=== PATIENT | male | born 1945 | race Caucasian/White ===

== ENCOUNTER 2018-04-22 22:46 | Inpatient (IN) | payer MEDICARE ==
[~2018-04-22] VITALS: Ht 182.9 cm; Wt 150.1 kg
[~2018-04-22 22:46] MED LIST: ALBU90OI INH; Amlodipine Besyl5 MG PO; BP MEDS; DOXA4 PO; DOXY100 PO; FENO48 PO; FURO40 PO; GLIP5 PO; LISI20 PO; LOVA40 PO; METF500; METF500C PO; MYRBETRIQ25 MG PO; Metformin HCl500 MG PO; NAPR500 PO; Norco 10-325 T1 EACH PO; POTASSIUM PO; PRAV20 PO; PROACE100 PO; Rapaflo8 MG PO; SILD25T PO; TADA10TA PO; TAMS.4ER PO; [UNRECOGNIZED DRUG - REMARK]; [UNRECOGNIZED DRUG - REMARK]
[2018-04-22 23:22] LABS: BASOPHILS ABSOLUTE AUTO 0.04 K/mm3 (0.00-0.23); BASOPHILS PERCENT AUTO 1 % (0-2); EOSINOPHILS ABSOLUTE AUTO 0.18 K/mm3 (0.00-0.68); EOSINOPHILS PERCENT AUTO 3 % (0-6); Hematocrit 38.4 % (37.0-53.0); Hemoglobin 12.7 g/dL (13.5-17.5); IMMATURE GRAN ABSOLUTE AUTO 0.02 K/mm3 (0.00-0.10); IMMATURE GRAN PERCENT AUTO 0 % (0-1); LYMPHOCYTES ABSOLUTE AUTO 1.36 K/mm3 (0.84-5.20); LYMPHOCYTES PERCENT AUTO 20 % (21-46); MONOCYTES ABSOLUTE AUTO 0.47 K/mm3 (0.16-1.47); MONOCYTES PERCENT AUTO 7 % (4-13); Mean Corpuscular HGB 28.4 pg (26.0-34.0); Mean Corpuscular HGB Conc 33.1 g/dL (31.5-36.5); Mean Corpuscular Volume 86 fL (80-100); Mean Platelet Volume 10.6 fL (9.1-12.4); NEUTROPHILS ABSOLUTE AUTO 4.79 K/mm3 (1.96-9.15); NEUTROPHILS PERCENT AUTO 70 % (41-73); Platelet Count 138 K/mm3 (150-400); RDW Standard Deviation 40.6 fL (35.1-46.3); Red Blood Cell Count 4.47 M/mm3 (4.30-5.90); White Blood Cell Count 6.86 K/mm3 (4.00-11.30)
[2018-04-22 23:35] LABS: International Normalized Ratio 1.05; Prothrombin Time Results 10.8 Sec (9.7-11.5)
[2018-04-22 23:44] LABS: Alanine Aminotransfer (ALT/SGP 37 U/L (12-78); Albumin, Blood 3.9 g/dL (3.4-5.0); Albumin/Globulin Ratio 1.3 (0.8-1.8); Alk Phos 80 U/L (50-136); Anion Gap 7 mmol/L (6-16); Aspartate Aminotrans (AST/SGOT 28 U/L (12-37); Bilirubin, Total 0.6 mg/dL (0.1-1.0); Blood Urea Nitrogen 17 mg/dL (8-24); Bun/Creatinine Ratio 14.2 (12.0-20.0); CO2, Blood 29 mmol/L (21-32); Calcium, Blood 8.7 mg/dL (8.5-10.1); Chloride, Blood 107 mmol/L (98-108); Globulin, Blood 3.1 g/dL (2.2-4.0); Glomerular Filtration Rate >60 (60-); Glucose, Blood 135 mg/dL (70-99); Potassium, Blood 3.7 mmol/L (3.5-5.5); Sodium, Blood 143 mmol/L (136-145); Troponin I 0.028 ng/mL (0.000-0.040)
[2018-04-23 00:43] LABS: Source, Urine Clean Catch
[2018-04-23 01:05] LABS: Bilirubin, Urine Neg (Neg); Blood, Urine 1+ (Neg); Glucose Qualitative, Urine Neg (Neg); Ketones, Urine Neg (Neg); Leukocyte Esterase, Urine Neg (Neg); Nitrite, Urine Neg (Neg); Protein, Urine 3+ (Neg); Specific Gravity, Urine 1.025 (1.003-1.022); Urobilinogen, Urine NORM (Normal)
[2018-04-23 01:13] LABS: Appearance, Urine Clear (Clear); Color, Urine Yellow (P-Yellow)
[2018-04-23 01:16] LABS: Bacteria Not Seen /hpf; Red Blood Cells, Urine 0-2 /hpf (0-2); Squamous Epithelial Cells Not Seen /hpf (Few); White Blood Cells, Urine Not Seen /hpf (0-5)
[2018-04-23 01:17] LABS: PCO2 Arterial 49.5 mmHg (35-45); PO2 Arterial 60.8 mmHg (80-100); pH Blood Arterial 7.39 (7.35-7.45)
[2018-04-23] MEDS ORDERED: METO25ER PO (04:44)
[2018-04-23] MEDS ORDERED: HYDR1TAB94 PO (04:51)
[2018-04-23] MEDS ORDERED: MONT10T PO (04:59)
[2018-04-23] MEDS ORDERED: ALBU90OI INH (05:06)
[2018-04-23 07:18] LABS: BASOPHILS ABSOLUTE AUTO 0.03 K/mm3 (0.00-0.23); BASOPHILS PERCENT AUTO 0 % (0-2); EOSINOPHILS ABSOLUTE AUTO 0.04 K/mm3 (0.00-0.68); EOSINOPHILS PERCENT AUTO 1 % (0-6); Hematocrit 38.7 % (37.0-53.0); Hemoglobin 12.8 g/dL (13.5-17.5); IMMATURE GRAN ABSOLUTE AUTO 0.03 K/mm3 (0.00-0.10); IMMATURE GRAN PERCENT AUTO 0 % (0-1); LYMPHOCYTES ABSOLUTE AUTO 0.73 K/mm3 (0.84-5.20); LYMPHOCYTES PERCENT AUTO 9 % (21-46); MONOCYTES ABSOLUTE AUTO 0.11 K/mm3 (0.16-1.47); MONOCYTES PERCENT AUTO 1 % (4-13); Mean Corpuscular HGB 28.7 pg (26.0-34.0); Mean Corpuscular HGB Conc 33.1 g/dL (31.5-36.5); Mean Corpuscular Volume 87 fL (80-100); Mean Platelet Volume 10.6 fL (9.1-12.4); NEUTROPHILS ABSOLUTE AUTO 6.86 K/mm3 (1.96-9.15); NEUTROPHILS PERCENT AUTO 88 % (41-73); Platelet Count 127 K/mm3 (150-400); RDW Coefficient Variation 13.1 % (11.7-14.2); Red Blood Cell Count 4.46 M/mm3 (4.30-5.90)
[2018-04-23 07:35] LABS: Alanine Aminotransfer (ALT/SGP 41 U/L (12-78); Albumin, Blood 3.8 g/dL (3.4-5.0); Albumin/Globulin Ratio 1.2 (0.8-1.8); Alk Phos 83 U/L (50-136); Anion Gap 7 mmol/L (6-16); Aspartate Aminotrans (AST/SGOT 27 U/L (12-37); Bilirubin, Total 0.6 mg/dL (0.1-1.0); Blood Urea Nitrogen 19 mg/dL (8-24); Bun/Creatinine Ratio 17.4 (12.0-20.0); CO2, Blood 26 mmol/L (21-32); Calcium, Blood 8.4 mg/dL (8.5-10.1); Chloride, Blood 108 mmol/L (98-108); Creatinine, Blood 1.09 mg/dL (0.60-1.20); Globulin, Blood 3.1 g/dL (2.2-4.0); Glomerular Filtration Rate >60 (60-); Glucose, Blood 151 mg/dL (70-99); Potassium, Blood 4.2 mmol/L (3.5-5.5); Sodium, Blood 141 mmol/L (136-145); Total Protein, Blood 6.9 g/dL (6.4-8.2)
[2018-04-26 09:25] LABS: BASOPHILS ABSOLUTE AUTO 0.03 K/mm3 (0.00-0.23); BASOPHILS PERCENT AUTO 0 % (0-2); EOSINOPHILS ABSOLUTE AUTO 0.12 K/mm3 (0.00-0.68); EOSINOPHILS PERCENT AUTO 2 % (0-6); Hematocrit 41.4 % (37.0-53.0); Hemoglobin 13.7 g/dL (13.5-17.5); IMMATURE GRAN ABSOLUTE AUTO 0.02 K/mm3 (0.00-0.10); IMMATURE GRAN PERCENT AUTO 0 % (0-1); LYMPHOCYTES ABSOLUTE AUTO 1.56 K/mm3 (0.84-5.20); LYMPHOCYTES PERCENT AUTO 22 % (21-46); MONOCYTES ABSOLUTE AUTO 0.61 K/mm3 (0.16-1.47); MONOCYTES PERCENT AUTO 8 % (4-13); Mean Corpuscular HGB 28.8 pg (26.0-34.0); Mean Corpuscular HGB Conc 33.1 g/dL (31.5-36.5); Mean Corpuscular Volume 87 fL (80-100); Mean Platelet Volume 10.3 fL (9.1-12.4); NEUTROPHILS ABSOLUTE AUTO 4.91 K/mm3 (1.96-9.15); NEUTROPHILS PERCENT AUTO 68 % (41-73); Platelet Count 149 K/mm3 (150-400); RDW Coefficient Variation 12.9 % (11.7-14.2); RDW Standard Deviation 41.4 fL (35.1-46.3); Red Blood Cell Count 4.76 M/mm3 (4.30-5.90); White Blood Cell Count 7.25 K/mm3 (4.00-11.30)
[2018-04-26 09:42] LABS: Albumin/Globulin Ratio 1.2 (0.8-1.8); Bilirubin, Total 0.8 mg/dL (0.1-1.0); Bun/Creatinine Ratio 28.2 (12.0-20.0); Calcium, Blood 9.1 mg/dL (8.5-10.1); Creatinine, Blood 1.42 mg/dL (0.60-1.20); Globulin, Blood 3.4 g/dL (2.2-4.0); Potassium, Blood 3.4 mmol/L (3.5-5.5); Total Protein, Blood 7.4 g/dL (6.4-8.2)
[2018-04-26] MEDS ORDERED: POTCHL20ER PO (12:12)
[2018-04-26] MEDS ORDERED: HYDCHL25 PO (12:16)
[2018-04-27 04:57] LABS: BASOPHILS ABSOLUTE AUTO 0.03 K/mm3 (0.00-0.23); BASOPHILS PERCENT AUTO 0 % (0-2); EOSINOPHILS ABSOLUTE AUTO 0.12 K/mm3 (0.00-0.68); EOSINOPHILS PERCENT AUTO 2 % (0-6); Hematocrit 40.1 % (37.0-53.0); Hemoglobin 12.9 g/dL (13.5-17.5); IMMATURE GRAN ABSOLUTE AUTO 0.02 K/mm3 (0.00-0.10); IMMATURE GRAN PERCENT AUTO 0 % (0-1); LYMPHOCYTES ABSOLUTE AUTO 1.37 K/mm3 (0.84-5.20); LYMPHOCYTES PERCENT AUTO 19 % (21-46); MONOCYTES ABSOLUTE AUTO 0.68 K/mm3 (0.16-1.47); MONOCYTES PERCENT AUTO 10 % (4-13); Mean Corpuscular HGB 28.2 pg (26.0-34.0); Mean Corpuscular HGB Conc 32.2 g/dL (31.5-36.5); Mean Corpuscular Volume 88 fL (80-100); Mean Platelet Volume 10.5 fL (9.1-12.4); NEUTROPHILS ABSOLUTE AUTO 4.96 K/mm3 (1.96-9.15); NEUTROPHILS PERCENT AUTO 69 % (41-73); Platelet Count 148 K/mm3 (150-400); RDW Standard Deviation 41.1 fL (35.1-46.3); Red Blood Cell Count 4.58 M/mm3 (4.30-5.90); White Blood Cell Count 7.18 K/mm3 (4.00-11.30)
[2018-04-27 05:19] LABS: Albumin, Blood 3.6 g/dL (3.4-5.0); Albumin/Globulin Ratio 1.2 (0.8-1.8); Bilirubin, Total 0.7 mg/dL (0.1-1.0); Bun/Creatinine Ratio 23.7 (12.0-20.0); Calcium, Blood 8.7 mg/dL (8.5-10.1); Creatinine, Blood 1.86 mg/dL (0.60-1.20); Globulin, Blood 3.1 g/dL (2.2-4.0); Potassium, Blood 3.7 mmol/L (3.5-5.5); Total Protein, Blood 6.7 g/dL (6.4-8.2)
[2018-04-27] MEDS ORDERED: METO10 PO (14:50)
== END 2018-04-27 15:18 | disposition home or self-care (01) | DRG 189 ==
LOC: ER 22:46 → PCU 04-23 04:13 → MEDS 04-24 14:50 → ENPENDDIS 04-26 11:58 → EDPENDDIS 04-26 11:58 → MEDS 04-27 15:18
PROVIDERS: Emergency Medicine; Internal Medicine
DX: J96.01 Acute respiratory failure with hypoxia (principal); I50.33 Acute on chronic diastolic (congestive) heart failure; I45.2 Bifascicular block; Z68.41 Body mass index [BMI] 40.0-44.9, adult; I16.0 Hypertensive urgency; E66.01 Morbid (severe) obesity due to excess calories; G47.33 Obstructive sleep apnea (adult) (pediatric); N40.0 Benign prostatic hyperplasia without lower urinary tract symptoms; E78.5 Hyperlipidemia, unspecified; I11.0 Hypertensive heart disease with heart failure; M19.90 Unspecified osteoarthritis, unspecified site; E87.6 Hypokalemia; E11.43 Type 2 diabetes mellitus with diabetic autonomic (poly)neuropathy; K31.84 Gastroparesis; Z88.8 Allergy status to other drugs, medicaments and biological substances; Z79.84 Long term (current) use of oral hypoglycemic drugs; Z79.899 Other long term (current) drug therapy; Z87.891 Personal history of nicotine dependence
CPT/HCPCS: 36415; 36416; 36600; 71046; 80053; 81001; 82803; 82947; 83880; 84484; 85025; 85610; 85730; 93005; 93010; 93306; 94640; 94660; 94762; 96374; 97161; 99285-25; G8978; G8979; G8980; J1650; J1940; J2405; J2930

== ENCOUNTER → 2018-10-11 | Outpatient (CLI) | payer MEDICARE ==
[~2018-10-11] MED LIST changes: +HYDCHL25 PO; +HYDR1TAB94 PO; +METO10 PO; +METO25ER PO; +MONT10T PO; +POTCHL20ER PO
[2018-10-11 16:50] LABS: BASOPHILS ABSOLUTE AUTO 0.03 K/mm3 (0.00-0.23); BASOPHILS PERCENT AUTO 1 % (0-2); EOSINOPHILS ABSOLUTE AUTO 0.28 K/mm3 (0.00-0.68); EOSINOPHILS PERCENT AUTO 5 % (0-6); Hematocrit 36.5 % (37.0-53.0); IMMATURE GRAN ABSOLUTE AUTO 0.02 K/mm3 (0.00-0.10); IMMATURE GRAN PERCENT AUTO 0 % (0-1); LYMPHOCYTES ABSOLUTE AUTO 0.97 K/mm3 (0.84-5.20); LYMPHOCYTES PERCENT AUTO 16 % (21-46); MONOCYTES ABSOLUTE AUTO 0.57 K/mm3 (0.16-1.47); MONOCYTES PERCENT AUTO 10 % (4-13); Mean Corpuscular HGB 27.9 pg (26.0-34.0); Mean Corpuscular HGB Conc 32.9 g/dL (31.5-36.5); Mean Corpuscular Volume 85 fL (80-100); NEUTROPHILS ABSOLUTE AUTO 4.07 K/mm3 (1.96-9.15); NEUTROPHILS PERCENT AUTO 69 % (41-73); RDW Coefficient Variation 14.2 % (11.7-14.2); RDW Standard Deviation 43.7 fL (35.1-46.3); White Blood Cell Count 5.94 K/mm3 (4.00-11.30)
[2018-10-11 17:00] LABS: Albumin, Blood 3.7 g/dL (3.4-5.0); Albumin/Globulin Ratio 0.9 (0.8-1.8); Bilirubin, Total 0.6 mg/dL (0.1-1.0); Bun/Creatinine Ratio 16.4 (12.0-20.0); Calcium, Blood 8.6 mg/dL (8.5-10.1); Creatinine, Blood 1.95 mg/dL (0.60-1.20); Globulin, Blood 4.1 g/dL (2.2-4.0); Potassium, Blood 3.7 mmol/L (3.5-5.5); Total Protein, Blood 7.8 g/dL (6.4-8.2)
[2018-10-11 18:03] LABS: Mean Platelet Volume 11.3 fL (9.1-12.4); Platelet Count 135 K/mm3 (150-400)
== END | disposition home or self-care (01) ==
LOC: LAB EV 16:43 → LAB SHORT 16:43
PROVIDERS: Physician Assistant
DX: R09.02 Hypoxemia (principal)
CPT/HCPCS: 80053; 83880; 85025

== ENCOUNTER 2018-10-12 17:36 | Inpatient (IN) | payer MEDICARE ==
[~2018-10-12] VITALS: Ht 182.9 cm; Wt 136.0 kg
[~2018-10-12 17:36] MED LIST changes: +ALBU2.5V5 INH; +Micro-K10 MEQ PO; -POTCHL20ER PO
[2018-10-12 22:28] LABS: PCO2 Arterial 44.7 mmHg (35-45); PO2 Arterial 64.9 mmHg (80-100)
[2018-10-12 22:51] LABS: BASOPHILS ABSOLUTE AUTO 0.01 K/mm3 (0.00-0.23); BASOPHILS PERCENT AUTO 0 % (0-2); EOSINOPHILS ABSOLUTE AUTO 0.01 K/mm3 (0.00-0.68); EOSINOPHILS PERCENT AUTO 0 % (0-6); Hematocrit 38.1 % (37.0-53.0); IMMATURE GRAN ABSOLUTE AUTO 0.01 K/mm3 (0.00-0.10); IMMATURE GRAN PERCENT AUTO 0 % (0-1); LYMPHOCYTES ABSOLUTE AUTO 0.41 K/mm3 (0.84-5.20); LYMPHOCYTES PERCENT AUTO 9 % (21-46); MONOCYTES PERCENT AUTO 2 % (4-13); Mean Corpuscular HGB 27.7 pg (26.0-34.0); Mean Corpuscular HGB Conc 31.5 g/dL (31.5-36.5); Mean Platelet Volume 10.7 fL (9.1-12.4); NEUTROPHILS ABSOLUTE AUTO 4.28 K/mm3 (1.96-9.15); NEUTROPHILS PERCENT AUTO 89 % (41-73); Platelet Count 153 K/mm3 (150-400); RDW Coefficient Variation 13.7 % (11.7-14.2); Red Blood Cell Count 4.33 M/mm3 (4.30-5.90); White Blood Cell Count 4.82 K/mm3 (4.00-11.30)
[2018-10-12 22:52] LABS: Mean Corpuscular Volume 88 fL (80-100)
[2018-10-12 23:10] LABS: Albumin, Blood 3.7 g/dL (3.4-5.0); Albumin/Globulin Ratio 0.9 (0.8-1.8); Bilirubin, Total 0.6 mg/dL (0.1-1.0); Bun/Creatinine Ratio 18.4 (12.0-20.0); Calcium, Blood 8.9 mg/dL (8.5-10.1); Creatinine, Blood 1.58 mg/dL (0.60-1.20); Globulin, Blood 4.2 g/dL (2.2-4.0); Magnesium, Blood 2.6 mg/dL (1.6-2.4); Potassium, Blood 3.8 mmol/L (3.5-5.5); Total Protein, Blood 7.9 g/dL (6.4-8.2); Troponin I 0.016 ng/mL (0.000-0.040)
[2018-10-12 23:35] LABS: Influenza A Negative (NEGATIVE); Influenza B Negative (NEGATIVE)
--- NOTE | 2018-10-13 05:06 | NUR ---
SHIFT SUMMARY PT ARRIVED TO FLOOR IN NO DISTRESS. PT HAD NO COMPLAINTS OR ISSUES. PT CURRENTLY SLEEPING AND BREATHING EASY. CALL LIGHT IN REACH.
--- NOTE | 2018-10-13 08:15 | NUR ---
NOTIFIED DR. BABCOCK PT'S BP THIS AM 170/79 AND DOES NOT HAVE ANY MEDICATIONS ORDERED TO MANAGE HIS BP. DR. BABCOCK SAID SHE WILL PUT IN ORDERS FOR PRN HYDRALAZINE.
--- NOTE | 2018-10-13 12:43 | NUR ---
PT'S MED REC INCOMPLETE. PT REPORTS HE USES [facility] IN [place] AND [facility] IN [place]. ATTEMPTED TO CALL [facility] IN [place]. STAFF REPORTS PHARMACY CLOSED SUNDAYS. WILL CALL [facility] IN [place] TO ATTEMPT TO GET PT'S MED LIST.
--- NOTE | 2018-10-13 12:49 | NUR ---
ATTEMPTED TO CALL [facility]. NO ANSWER. WILL TRY AGAIN LATER.
--- NOTE | 2018-10-13 15:28 | NUR ---
NOTIFIED DR. BABCOCK PT REPORTS HIS EYES ARE DRY AND BURNING AND THAT HE USUALLY USES VISINE AT HOME. SAID TO ORDER VISINE. NO OTHER NEW ORDERS AT THIS TIME.
--- NOTE | 2018-10-13 18:24 | NUR ---
SHIFT SUMMARY- PT DENIES PAIN. DENIES N/V. DYSPNEA UPON EXERTION. 93% ON 4L O2 NC. BP ELEVATED THIS AM. NOTIFIED. MEDS GIVEN PER EMAR. BP 142/54 THIS PM. BLOOD SUGARS BETWEEN 233-289 THIS SHIFT. MEDS GIVEN PER EMAR. INDEPENDENT IN THE ROOM. NO OTHER SIGNIFICANT CHANGES THIS SHIFT.
[2018-10-14 05:00] LABS: BASOPHILS ABSOLUTE AUTO 0.01 K/mm3 (0.00-0.23); BASOPHILS PERCENT AUTO 0 % (0-2); EOSINOPHILS PERCENT AUTO 0 % (0-6); Hematocrit 36.1 % (37.0-53.0); Hemoglobin 11.5 g/dL (13.5-17.5); IMMATURE GRAN ABSOLUTE AUTO 0.06 K/mm3 (0.00-0.10); IMMATURE GRAN PERCENT AUTO 1 % (0-1); LYMPHOCYTES ABSOLUTE AUTO 0.54 K/mm3 (0.84-5.20); LYMPHOCYTES PERCENT AUTO 5 % (21-46); MONOCYTES ABSOLUTE AUTO 0.35 K/mm3 (0.16-1.47); MONOCYTES PERCENT AUTO 3 % (4-13); Mean Corpuscular HGB 27.3 pg (26.0-34.0); Mean Corpuscular HGB Conc 31.9 g/dL (31.5-36.5); Mean Corpuscular Volume 86 fL (80-100); Mean Platelet Volume 11.4 fL (9.1-12.4); NEUTROPHILS ABSOLUTE AUTO 9.39 K/mm3 (1.96-9.15); NEUTROPHILS PERCENT AUTO 91 % (41-73); Platelet Count 152 K/mm3 (150-400); RDW Standard Deviation 43.3 fL (35.1-46.3); Red Blood Cell Count 4.22 M/mm3 (4.30-5.90); White Blood Cell Count 10.35 K/mm3 (4.00-11.30)
--- NOTE | 2018-10-14 05:07 | NUR ---
72 year old Male with jose and iddm and cap continues to need oxygen 4 l nc or cpap to keep sats greater than 90%. he is obese and has 2plus to 3 plus edema le. on antibiotics and steroids and blood suger requires 7 units regular insulin at hs. very talkative and able to get up and ambulate to bathroom unassisted.
[2018-10-14 05:24] LABS: Magnesium, Blood 3.1 mg/dL (1.6-2.4)
[2018-10-14 05:26] LABS: Albumin, Blood 3.6 g/dL (3.4-5.0); Albumin/Globulin Ratio 0.9 (0.8-1.8); Bilirubin, Total 0.4 mg/dL (0.1-1.0); Bun/Creatinine Ratio 24.2 (12.0-20.0); Calcium, Blood 8.9 mg/dL (8.5-10.1); Creatinine, Blood 1.49 mg/dL (0.60-1.20); Globulin, Blood 3.9 g/dL (2.2-4.0); Potassium, Blood 3.5 mmol/L (3.5-5.5); Total Protein, Blood 7.5 g/dL (6.4-8.2)
--- NOTE | 2018-10-14 19:57 | NUR ---
SHIFT SUMMARY PT A&O, CALM AND COOPERATIVE WITH CARE. PT RESTING IN BED DURING SHIFT. UP IND TO BATHROOM. PT REPORTS GENERALIZED PAIN AND MAS, STATES ITS RELATED TO COUGHING, MEDICATED X2 WITH SCHEDULED TYLENOL WITH POSITIVE RESULTS. PT SOB WITH EXERTION, PT HAS INCREASE NEED FOR O2, FROM 4L TO 6L >88% ON 6L, DR BABCOCK NOTIFIED, CHEST XRAY COMPLETED. PT RECEIVED PO LASIX THIS AM AND IV THIS AFTERNOON. PT ENCOURAGED TO USE URINAL FOR I&O's. PT RECEIVING IV STEROIDS THIS AM, TRANSITIONING TO PO TOMORROW. PT HYPERTENSIVE,TRENDING DOWN. INCREASED NEED FOR O2. OTHER VSS. NO OTHER ACUTE CHANGES NOTED DURING SHIFT REPORT GIVEN TO ONCOMING RN.
--- NOTE | 2018-10-15 05:07 | NUR ---
VSS. AFEBRILE, A/O, HARSH COUGH AT TIMES, PT USES CPAP OVERNOC, C/O OF SOB/READ AT TIMES, PT IS COOPERATIVE AND TALKATIVE. PUSLE OXIMETER MONITORING OVERNOC. PT SLEPT WELL MOST OF THE NOC. WILL REPORT TO ON-COMING SHIFT.
[2018-10-15 05:15] LABS: BASOPHILS ABSOLUTE AUTO 0.01 K/mm3 (0.00-0.23); BASOPHILS PERCENT AUTO 0 % (0-2); EOSINOPHILS PERCENT AUTO 0 % (0-6); Hematocrit 36.6 % (37.0-53.0); Hemoglobin 11.6 g/dL (13.5-17.5); IMMATURE GRAN ABSOLUTE AUTO 0.08 K/mm3 (0.00-0.10); IMMATURE GRAN PERCENT AUTO 1 % (0-1); LYMPHOCYTES ABSOLUTE AUTO 0.64 K/mm3 (0.84-5.20); LYMPHOCYTES PERCENT AUTO 6 % (21-46); MONOCYTES ABSOLUTE AUTO 0.65 K/mm3 (0.16-1.47); MONOCYTES PERCENT AUTO 6 % (4-13); Mean Corpuscular HGB Conc 31.7 g/dL (31.5-36.5); Mean Corpuscular Volume 85 fL (80-100); Mean Platelet Volume 11.5 fL (9.1-12.4); NEUTROPHILS ABSOLUTE AUTO 9.79 K/mm3 (1.96-9.15); NEUTROPHILS PERCENT AUTO 88 % (41-73); Platelet Count 165 K/mm3 (150-400); RDW Coefficient Variation 13.9 % (11.7-14.2); RDW Standard Deviation 43.4 fL (35.1-46.3); Red Blood Cell Count 4.29 M/mm3 (4.30-5.90); White Blood Cell Count 11.17 K/mm3 (4.00-11.30)
[2018-10-15 05:33] LABS: Albumin, Blood 3.6 g/dL (3.4-5.0); Albumin/Globulin Ratio 0.9 (0.8-1.8); Bilirubin, Total 0.3 mg/dL (0.1-1.0); Bun/Creatinine Ratio 30.7 (12.0-20.0); Creatinine, Blood 1.4 mg/dL (0.60-1.20); Globulin, Blood 3.8 g/dL (2.2-4.0); Potassium, Blood 3.4 mmol/L (3.5-5.5); Total Protein, Blood 7.4 g/dL (6.4-8.2)
--- NOTE | 2018-10-15 18:18 | NUR ---
SHIFT SUMMARY PT HAS HAD AN INCREASED NEED FOR OXYGEN AND WILL TRANSITION FROM CPAP TO BIPAP THIS EVENING, DR BABCOCK NOTIFIED, NO NEW ORDERS. PT ON 7L O2 VIA OXYMIZER OR BIPAP, PT RECEIVING BREATHING TREATMENTS PER RT. PT A&OX4. CALM AND COOPERATIVE [facility] CARE. PT RESTING IN BED DURING SHIFT, ON SIDE OF BED FOR MEALS. PT REPORTS GENERALIZED PAIN, MEDICATED X1 WITH TYLENOL. PT DENIES NAUSEA DURIGN SHIFT. PT RECEIVING IV LASIX AND HAS TRANSITIONED TO PO STEROIDS. OTHER VSS. NO OTHER ACUTE CHANGES NOTED DURING SHIFT. WILL CONTINUE TO MONITOR UNTIL REPORT GIVEN TO ONCOMING RN.
--- NOTE | 2018-10-16 05:23 | NUR ---
VSS, AFEBRILE, PT REMAINS OXYGEN STARVED AND SATS FREQUENTLY FALL OUT OF THE 90% RATE. RT HAS BEEN CALLED A FEW TIMES TO ASSIST WITH REGAINING THE SATURATION THAT HE HAS LOST. PT IS NOT ENTHUSIASTIC ABOUT HIS BIPAP, BUT DID FINALLY DID DECIDE TO USE IT OVERNOC. 7L OF O2. PT REMAINS HEAVILY DEPENDENT ON O2.WILL REPORT TO ONCOMING SHIFT.
[2018-10-16 08:36] LABS: BASOPHILS ABSOLUTE AUTO 0.01 K/mm3 (0.00-0.23); BASOPHILS PERCENT AUTO 0 % (0-2); EOSINOPHILS ABSOLUTE AUTO 0.01 K/mm3 (0.00-0.68); EOSINOPHILS PERCENT AUTO 0 % (0-6); Hematocrit 39.3 % (37.0-53.0); Hemoglobin 12.7 g/dL (13.5-17.5); IMMATURE GRAN ABSOLUTE AUTO 0.09 K/mm3 (0.00-0.10); IMMATURE GRAN PERCENT AUTO 1 % (0-1); LYMPHOCYTES ABSOLUTE AUTO 1.11 K/mm3 (0.84-5.20); LYMPHOCYTES PERCENT AUTO 12 % (21-46); MONOCYTES ABSOLUTE AUTO 0.75 K/mm3 (0.16-1.47); MONOCYTES PERCENT AUTO 8 % (4-13); Mean Corpuscular HGB 27.6 pg (26.0-34.0); Mean Corpuscular HGB Conc 32.3 g/dL (31.5-36.5); Mean Corpuscular Volume 85 fL (80-100); Mean Platelet Volume 10.9 fL (9.1-12.4); NEUTROPHILS ABSOLUTE AUTO 7.03 K/mm3 (1.96-9.15); NEUTROPHILS PERCENT AUTO 78 % (41-73); Platelet Count 171 K/mm3 (150-400); RDW Coefficient Variation 13.7 % (11.7-14.2); RDW Standard Deviation 42.6 fL (35.1-46.3)
[2018-10-16 09:02] LABS: Albumin, Blood 3.7 g/dL (3.4-5.0); Albumin/Globulin Ratio 0.9 (0.8-1.8); Bilirubin, Total 0.4 mg/dL (0.1-1.0); Bun/Creatinine Ratio 28.1 (12.0-20.0); Creatinine, Blood 1.28 mg/dL (0.60-1.20); Magnesium, Blood 2.9 mg/dL (1.6-2.4); Potassium, Blood 3.5 mmol/L (3.5-5.5); Total Protein, Blood 7.7 g/dL (6.4-8.2)
--- NOTE | 2018-10-16 17:25 | NUR ---
Mr. Sanchez is a delightful man who enjoys making people smile. He says he is ot concernedabout his health, just irritated. He is not clear as to what is wrong with him, but says he would rather be home. He feels he has a strong supportive network of family and friends. He tells me he is Catholic but not active. He declined needs or concerns. He did not want prayer. I will remain available.
--- NOTE | 2018-10-16 18:19 | NUR ---
PT. ON PHONE ONCE AGAIN, PT. IS SNOQUALMIE AND CAN BE HEARD UP AND DOWN THE WEISS. PT. LUNG SOUNDS TIGHT WITH INS/EXP WHEEZES T/O. PT. OXYGEN LEVELS IN THE LOW 90'S T/O THE DAY. HAS NOT APPEARED TO BE IN ANY DISTRESS TODAY.
[2018-10-17 05:17] LABS: BASOPHILS ABSOLUTE AUTO 0.01 K/mm3 (0.00-0.23); BASOPHILS PERCENT AUTO 0 % (0-2); EOSINOPHILS ABSOLUTE AUTO 0.01 K/mm3 (0.00-0.68); EOSINOPHILS PERCENT AUTO 0 % (0-6); Hematocrit 38.6 % (37.0-53.0); Hemoglobin 12.2 g/dL (13.5-17.5); IMMATURE GRAN ABSOLUTE AUTO 0.11 K/mm3 (0.00-0.10); IMMATURE GRAN PERCENT AUTO 1 % (0-1); LYMPHOCYTES PERCENT AUTO 10 % (21-46); MONOCYTES ABSOLUTE AUTO 0.71 K/mm3 (0.16-1.47); MONOCYTES PERCENT AUTO 8 % (4-13); Mean Corpuscular HGB 27.3 pg (26.0-34.0); Mean Corpuscular HGB Conc 31.6 g/dL (31.5-36.5); Mean Corpuscular Volume 86 fL (80-100); Mean Platelet Volume 10.9 fL (9.1-12.4); NEUTROPHILS ABSOLUTE AUTO 7.17 K/mm3 (1.96-9.15); NEUTROPHILS PERCENT AUTO 81 % (41-73); Platelet Count 154 K/mm3 (150-400); RDW Coefficient Variation 13.2 % (11.7-14.2); RDW Standard Deviation 41.9 fL (35.1-46.3); Red Blood Cell Count 4.47 M/mm3 (4.30-5.90); White Blood Cell Count 8.91 K/mm3 (4.00-11.30)
--- NOTE | 2018-10-17 05:30 | NUR ---
VSS, AFEBRILE, A/O, READ, BIPAP AT NOC, O2 SATS APPEAR TO BE IMPROVING, PT APPEARS TO BE IN GOOD SPIRITS, MORE TALKATIVE AND OPPTIMISTIC ABOUT BEING DISCHARGED HOME IN A FEW DAYS. WILL REPORT TO ON-COMING SHIFT.
[2018-10-17 05:42] LABS: Calcium, Blood 9.2 mg/dL (8.5-10.1); Creatinine, Blood 1.31 mg/dL (0.60-1.20); Potassium, Blood 3.8 mmol/L (3.5-5.5)
--- NOTE | 2018-10-17 17:53 | NUR ---
PT AOX4 AND COOPERATIVE OF CARE. PT DOING WELL AND IS INDEPENDENT TO RESTROOM WITH LONG O2 LINE. PT STATES HE IS NOT COUGHING MUCH TODAY AND FEELS MUCH BETTER. PT HAD A SHOWER AND WAS ABLE TO DO THIS HIMSELF. NO DISTRESS NOTED GOOD URINE OUTPUT. WILL CONTINUE TO MONITOR.
--- NOTE | 2018-10-18 04:30 | NUR ---
10/18/18 0430 SLEEPING WELL. VITALS TAKEN EARLIER WERE STABLE. O2 REMAINS AT 7 LPM VIA OXIMIZER. NO COMPLAINTS DURING VITALS OR NOW.
[2018-10-18 05:37] LABS: BASOPHILS ABSOLUTE AUTO 0.02 K/mm3 (0.00-0.23); BASOPHILS PERCENT AUTO 0 % (0-2); EOSINOPHILS ABSOLUTE AUTO 0.08 K/mm3 (0.00-0.68); EOSINOPHILS PERCENT AUTO 1 % (0-6); Hemoglobin 12.2 g/dL (13.5-17.5); IMMATURE GRAN PERCENT AUTO 2 % (0-1); LYMPHOCYTES ABSOLUTE AUTO 1.17 K/mm3 (0.84-5.20); LYMPHOCYTES PERCENT AUTO 11 % (21-46); MONOCYTES ABSOLUTE AUTO 0.77 K/mm3 (0.16-1.47); MONOCYTES PERCENT AUTO 7 % (4-13); Mean Corpuscular HGB 27.7 pg (26.0-34.0); Mean Corpuscular HGB Conc 32.1 g/dL (31.5-36.5); Mean Corpuscular Volume 86 fL (80-100); Mean Platelet Volume 10.9 fL (9.1-12.4); NEUTROPHILS ABSOLUTE AUTO 8.36 K/mm3 (1.96-9.15); NEUTROPHILS PERCENT AUTO 79 % (41-73); Platelet Count 151 K/mm3 (150-400); RDW Coefficient Variation 13.4 % (11.7-14.2); RDW Standard Deviation 42.4 fL (35.1-46.3); Red Blood Cell Count 4.41 M/mm3 (4.30-5.90)
[2018-10-18 05:58] LABS: Alanine Aminotransfer (ALT/SGP 33 U/L (12-78); Albumin, Blood 3.4 g/dL (3.4-5.0); Albumin/Globulin Ratio 0.9 (0.8-1.8); Alk Phos 69 U/L (50-136); Anion Gap 7 mmol/L (6-16); Aspartate Aminotrans (AST/SGOT 28 U/L (12-37); Bilirubin, Total 0.6 mg/dL (0.1-1.0); Blood Urea Nitrogen 39 mg/dL (8-24); CO2, Blood 31 mmol/L (21-32); Calcium, Blood 9.2 mg/dL (8.5-10.1); Chloride, Blood 98 mmol/L (98-108); Creatinine, Blood 1.22 mg/dL (0.60-1.20); Globulin, Blood 3.7 g/dL (2.2-4.0); Glomerular Filtration Rate >60 (60-); Glucose, Blood 142 mg/dL (70-99); Potassium, Blood 3.8 mmol/L (3.5-5.5); Sodium, Blood 136 mmol/L (136-145); Total Protein, Blood 7.1 g/dL (6.4-8.2)
--- NOTE | 2018-10-18 17:49 | NUR ---
SHIFT SUMMARY PATIENT PLEASANT. INDEPENDENT IN THE ROOM. NO ACUTE CONCERNS AT THIS TIME. HE TOOK A SHOWER TODAY. PATIENT DOING BETTER.
--- NOTE | 2018-10-18 20:53 | NUR ---
NO ACUTE CHANGES NOTED, MILD PAIN NOTED, WILL MEDICATE WITH PRN MEDICATIONS. NO OTHER ISSUES NOTED AT THIS TIME. WILL CONTINUE TO MONITOR FOR CHANGES.
--- NOTE | 2018-10-18 22:18 | NUR ---
2030 REPORT RECEIVED. PT WEARING O2 VIA OXIMZER AND DENIES DYSPNEA. PTS BLOOD GLUCOSE WAS 285, HUMALOG 7 UNITS GIVEN (DOUBLE CHECKED BY FAZAL SUAREZ) LEFT DELTOID.
[2018-10-19 05:02] LABS: Bun/Creatinine Ratio 34.1 (12.0-20.0); Calcium, Blood 9.2 mg/dL (8.5-10.1); Creatinine, Blood 1.29 mg/dL (0.60-1.20); Potassium, Blood 4.1 mmol/L (3.5-5.5)
--- NOTE | 2018-10-19 05:05 | NUR ---
72 Y/O OBESE MALE SLEPT QUIETLY AL EVENING WHILE WEARING C-PAP. PTS DENIES NAUSEA OR PAIN, SLIGHT DYSPNEA WHICH IS RESOLVING PER PATIENT. PTS BED IN LOW POSITION WITH CALL LIGHT AT SIDE.
--- NOTE | 2018-10-19 18:43 | NUR ---
SHIFT SUMMARY NO ACUTE CHANGSE WITH THE PATIENT. WILL ASSESS FOR CONCERNS.
--- NOTE | 2018-10-20 04:02 | NUR ---
SHIFT SUMMARY NO CHANGES THIS SHIFT. PT HAS RESTED T/O THE SHIFT. 3L O2 IN PLACE SATS ABOVE 90%. CPAP AT NIGHT WITH 3.5 L BLEED IN. PT INDEPENDENT IN THE ROOM. MEDICATED X1 FOR CHRONIC PAIN. VITALS STABLE. ASSESSMENT UNCHANGED. WILL CONTINUE TO MONITOR AND REPORT TO ONCOMING RN.
[2018-10-20 05:07] LABS: BASOPHILS ABSOLUTE AUTO 0.03 K/mm3 (0.00-0.23); BASOPHILS PERCENT AUTO 0 % (0-2); EOSINOPHILS ABSOLUTE AUTO 0.07 K/mm3 (0.00-0.68); EOSINOPHILS PERCENT AUTO 1 % (0-6); Hematocrit 38.7 % (37.0-53.0); Hemoglobin 12.3 g/dL (13.5-17.5); IMMATURE GRAN ABSOLUTE AUTO 0.29 K/mm3 (0.00-0.10); IMMATURE GRAN PERCENT AUTO 2 % (0-1); LYMPHOCYTES ABSOLUTE AUTO 1.15 K/mm3 (0.84-5.20); LYMPHOCYTES PERCENT AUTO 9 % (21-46); MONOCYTES PERCENT AUTO 8 % (4-13); Mean Corpuscular HGB 27.7 pg (26.0-34.0); Mean Corpuscular HGB Conc 31.8 g/dL (31.5-36.5); Mean Corpuscular Volume 87 fL (80-100); Mean Platelet Volume 10.7 fL (9.1-12.4); NEUTROPHILS ABSOLUTE AUTO 10.76 K/mm3 (1.96-9.15); NEUTROPHILS PERCENT AUTO 81 % (41-73); Platelet Count 161 K/mm3 (150-400); RDW Coefficient Variation 13.5 % (11.7-14.2); RDW Standard Deviation 43.2 fL (35.1-46.3); Red Blood Cell Count 4.44 M/mm3 (4.30-5.90)
[2018-10-20 05:46] LABS: Albumin, Blood 3.4 g/dL (3.4-5.0); Albumin/Globulin Ratio 0.9 (0.8-1.8); Bilirubin, Total 0.5 mg/dL (0.1-1.0); Bun/Creatinine Ratio 36.8 (12.0-20.0); Calcium, Blood 9.2 mg/dL (8.5-10.1); Creatinine, Blood 1.44 mg/dL (0.60-1.20); Globulin, Blood 3.9 g/dL (2.2-4.0); Magnesium, Blood 2.8 mg/dL (1.6-2.4); Potassium, Blood 3.8 mmol/L (3.5-5.5); Total Protein, Blood 7.3 g/dL (6.4-8.2)
--- NOTE | 2018-10-20 17:58 | NUR ---
SHIFT SUMMARY PATIENT IS STILL PLEASANT. NO ACUTE CONCERNS. PATIENT IS POTENTIAL FOR DISCHARGE TOMORROW.
--- NOTE | 2018-10-21 04:21 | NUR ---
SHIFT SUMMARY NO ACUTE CHANGES PT HAS RESTED MOST OF THE NIGHT. CPAP IN PLACE. PT HAS BEEN INDEPENDENT IN THE ROOM, USES URINAL AT BEDSIDE. PT VOIDING WITHOUT DIFFICULTY SINCE LASIKS. LEGS REMAIN EDEMATOUS. PRODUCTIVE COUGH. 3L O2, IN PLACE. SOB WITH MOST ACTIVITY. VITALS HAVE BEEN STABLE. PLAN IS FOR DC HOME TODAY. WILL CONTINUE TO MONITOR AND REPORT TO ONCOMING RN.
[2018-10-21 05:18] LABS: BASOPHILS ABSOLUTE AUTO 0.01 K/mm3 (0.00-0.23); BASOPHILS PERCENT AUTO 0 % (0-2); EOSINOPHILS PERCENT AUTO 1 % (0-6); Hematocrit 38.8 % (37.0-53.0); Hemoglobin 12.2 g/dL (13.5-17.5); IMMATURE GRAN ABSOLUTE AUTO 0.29 K/mm3 (0.00-0.10); IMMATURE GRAN PERCENT AUTO 3 % (0-1); LYMPHOCYTES ABSOLUTE AUTO 1.05 K/mm3 (0.84-5.20); LYMPHOCYTES PERCENT AUTO 10 % (21-46); MONOCYTES ABSOLUTE AUTO 0.89 K/mm3 (0.16-1.47); MONOCYTES PERCENT AUTO 8 % (4-13); Mean Corpuscular HGB 27.6 pg (26.0-34.0); Mean Corpuscular HGB Conc 31.4 g/dL (31.5-36.5); Mean Corpuscular Volume 88 fL (80-100); Mean Platelet Volume 11.2 fL (9.1-12.4); NEUTROPHILS ABSOLUTE AUTO 8.63 K/mm3 (1.96-9.15); NEUTROPHILS PERCENT AUTO 79 % (41-73); Platelet Count 152 K/mm3 (150-400); RDW Coefficient Variation 13.6 % (11.7-14.2); RDW Standard Deviation 43.8 fL (35.1-46.3); Red Blood Cell Count 4.42 M/mm3 (4.30-5.90); White Blood Cell Count 10.97 K/mm3 (4.00-11.30)
[2018-10-21 05:47] LABS: Magnesium, Blood 2.9 mg/dL (1.6-2.4)
[2018-10-21 05:49] LABS: Calcium, Blood 9.3 mg/dL (8.5-10.1); Creatinine, Blood 1.36 mg/dL (0.60-1.20); Potassium, Blood 3.7 mmol/L (3.5-5.5)
--- NOTE | 2018-10-21 19:08 | NUR ---
SHIFT SUMMARY: NO ACUTE CHANGES TO REPORT THIS SHIFT. PT A&O; COOPERATIVE WITH CARE. NO C/O PAIN THIS SHIFT. O2 @ 3L-HOME DOSE. CKD STAGE 3; DIURETICS CONTINUING. ROCEHIN IV FOR POSSIBLE RLL PNA. WCTM.
--- NOTE | 2018-10-22 04:55 | NUR ---
MEDICAL RECEPTIONIST MEDICAL ASSISTANT SUMMARY NO ACUTE CHANGES THIS SHIFT. PT AAOX4 AND INDEPENDENT IN ROOM. O2 SATS >90% ON 3L O2 VIA OXYMIZER AND 2L O2 WITH CPAP AT NIGHT. RESPIRATORY PANEL SENT THIS AM. VSS, WILL CONTINUE TO MONITOR.
[2018-10-22 06:14] LABS: Adenovirus Not Detected (NOT DETECT); Bordetella pertussis Not Detected (NOT DETECT); Chlamydophila pneumoniae Not Detected (NOT DETECT); Coronavirus 229E Not Detected (NOT DETECT); Coronavirus HKU1 Not Detected (NOT DETECT); Coronavirus NL63 Not Detected (NOT DETECT); Coronavirus OC43 Not Detected (NOT DETECT); Human Metapneumovirus Not Detected (NOT DETECT); Human Rhinovirus/Enterovirus Not Detected (NOT DETECT); Influenza A Not Detected (NOT DETECT); Influenza A/2009-H1 Not Detected (NOT DETECT); Influenza A/H1 Not Detected (NOT DETECT); Influenza A/H3 Not Detected (NOT DETECT); Influenza B Not Detected (NOT DETECT); Mycoplasma pneumoniae Not Detected (NOT DETECT); Parainfluenza Virus 1 Not Detected (NOT DETECT); Parainfluenza Virus 2 Not Detected (NOT DETECT); Parainfluenza Virus 3 Not Detected (NOT DETECT); Parainfluenza Virus 4 Not Detected (NOT DETECT); Respiratory Syncytial Virus Not Detected (NOT DETECT)
--- NOTE | 2018-10-22 19:15 | NUR ---
PT. WITHOUT CHANGE THIS SHIFT. NEW IV IN DERECK
[2018-10-23 05:33] LABS: BASOPHILS ABSOLUTE AUTO 0.02 K/mm3 (0.00-0.23); BASOPHILS PERCENT AUTO 0 % (0-2); EOSINOPHILS ABSOLUTE AUTO 0.13 K/mm3 (0.00-0.68); EOSINOPHILS PERCENT AUTO 1 % (0-6); Hematocrit 38.2 % (37.0-53.0); Hemoglobin 12.2 g/dL (13.5-17.5); IMMATURE GRAN ABSOLUTE AUTO 0.27 K/mm3 (0.00-0.10); IMMATURE GRAN PERCENT AUTO 3 % (0-1); LYMPHOCYTES ABSOLUTE AUTO 0.96 K/mm3 (0.84-5.20); LYMPHOCYTES PERCENT AUTO 9 % (21-46); MONOCYTES ABSOLUTE AUTO 0.81 K/mm3 (0.16-1.47); MONOCYTES PERCENT AUTO 7 % (4-13); Mean Corpuscular HGB 27.4 pg (26.0-34.0); Mean Corpuscular HGB Conc 31.9 g/dL (31.5-36.5); Mean Corpuscular Volume 86 fL (80-100); Mean Platelet Volume 11.2 fL (9.1-12.4); NEUTROPHILS ABSOLUTE AUTO 8.72 K/mm3 (1.96-9.15); NEUTROPHILS PERCENT AUTO 80 % (41-73); Platelet Count 147 K/mm3 (150-400); RDW Coefficient Variation 13.7 % (11.7-14.2); RDW Standard Deviation 43.1 fL (35.1-46.3); Red Blood Cell Count 4.46 M/mm3 (4.30-5.90); White Blood Cell Count 10.91 K/mm3 (4.00-11.30)
[2018-10-23 06:17] LABS: Bun/Creatinine Ratio 43.4 (12.0-20.0); Calcium, Blood 9.3 mg/dL (8.5-10.1); Creatinine, Blood 1.29 mg/dL (0.60-1.20); Potassium, Blood 3.5 mmol/L (3.5-5.5)
--- NOTE | 2018-10-23 06:34 | NUR ---
SHIFT SUMMARY: NO ACUTE CHANGES TONIGHT. PT IS ON 3L VIA NC, CONT PULSE O2 IN PLACE TONIGHT PT WEARS CPAP. HR IS IN HIGH 40s-LOW 50s DURING SLEEP, NORMAL FOR PT. PT IS A&O X 4, INDEPENDENT IN RM. CBG @ 250 TONIGHT; ADMINISTERED 5 UNITS INSULIN PER MED SS. ADMINISTERED 10MG NORCO 1X FOR L HIP PAIN. BNP AT 87 WITH THIS AM LABS. REPEAT CHEST X RAY THIS AM PER DR DIAMOND; PT OUT OF RM AT THIS TIME TO IMAGING. NO OTHER CHANGES TO REPORT. WILL CONT TO MONITOR AND PROVIDE CARE UNTIL PRESUMED BY ONCOMING RN.
--- NOTE | 2018-10-23 16:22 | NUR ---
SHIFT SUMMARY- PT C/O MILD HIP PAIN. PT DENIES N/V. PT REPORTS CURRENT LEVEL OF SOB IS HIS BASELINE. DYSPNEA UPON EXERTION. 91% ON 3L O2 NC. INDEPENDENT IN THE ROOM. NO OTHER SIGNIFICANT CHANGES THIS SHIFT.
--- NOTE | 2018-10-24 05:57 | NUR ---
SHIFT SUMMARY: NO ACUTE CHANGES TO REPORT THIS SHIFT. PT IS A&O, INDEPENDENT IN RM. ON 3L VIA OXYMIZER AND CPAP AT NIGHT; CONT PULSE O2 IN PLACE PER CPAP PROTOCOL. HR NOTED TO DROP DOWN INTO THE HIGH 40s - LOW 50s; THIS IS NOT ABNORMAL FOR PT. LS DIM T/O. CBG @ 302 TONIGHT; ADMINISTERED INSULIN PER MED SS. NO PAIN MEDS ADMINISTERED THIS SHIFT. ANTIBIOTIC ADMINISTERED PER EMAR. WILL CONT TO MONITOR AND PROVIDE CARE UNTIL PRESUMED BY ONCOMING RN.
[2018-10-24 06:50] LABS: BASOPHILS ABSOLUTE AUTO 0.04 K/mm3 (0.00-0.23); BASOPHILS PERCENT AUTO 0 % (0-2); EOSINOPHILS ABSOLUTE AUTO 0.12 K/mm3 (0.00-0.68); EOSINOPHILS PERCENT AUTO 1 % (0-6); Hematocrit 38.9 % (37.0-53.0); Hemoglobin 12.5 g/dL (13.5-17.5); IMMATURE GRAN ABSOLUTE AUTO 0.24 K/mm3 (0.00-0.10); IMMATURE GRAN PERCENT AUTO 2 % (0-1); LYMPHOCYTES ABSOLUTE AUTO 1.12 K/mm3 (0.84-5.20); LYMPHOCYTES PERCENT AUTO 9 % (21-46); MONOCYTES ABSOLUTE AUTO 0.88 K/mm3 (0.16-1.47); MONOCYTES PERCENT AUTO 7 % (4-13); Mean Corpuscular HGB 27.5 pg (26.0-34.0); Mean Corpuscular HGB Conc 32.1 g/dL (31.5-36.5); Mean Corpuscular Volume 86 fL (80-100); Mean Platelet Volume 10.7 fL (9.1-12.4); NEUTROPHILS ABSOLUTE AUTO 10.27 K/mm3 (1.96-9.15); NEUTROPHILS PERCENT AUTO 81 % (41-73); Platelet Count 148 K/mm3 (150-400); RDW Coefficient Variation 13.7 % (11.7-14.2); RDW Standard Deviation 42.5 fL (35.1-46.3); Red Blood Cell Count 4.55 M/mm3 (4.30-5.90); White Blood Cell Count 12.67 K/mm3 (4.00-11.30)
[2018-10-24 07:03] LABS: Bun/Creatinine Ratio 44.3 (12.0-20.0); Calcium, Blood 9.4 mg/dL (8.5-10.1); Creatinine, Blood 1.31 mg/dL (0.60-1.20); Potassium, Blood 3.4 mmol/L (3.5-5.5)
[2018-10-24] MEDS ORDERED: ACET325 PO (14:22)
[2018-10-24] MEDS ORDERED: HUMALOG KW200 UNIT/1 SC (14:23)
[2018-10-24] MEDS ORDERED: GUAI600T33 PO (14:23)
[2018-10-24] MEDS ORDERED: ALBU3IS INH (14:24)
[2018-10-24] MEDS ORDERED: Lopressor 25 mg25 MG PO (14:25)
[2018-10-24] MEDS ORDERED: METO2.5 PO (14:25)
[2018-10-24] MEDS ORDERED: DULERA 200 MCG/13 GM INH (14:26)
[2018-10-24] MEDS ORDERED: ALBU90OI61 INH (14:39)
--- NOTE | 2018-10-24 14:41 | NUR ---
SPOKE WITH DR DIAMOND REGARDING CLARIFICATION OF DISCHARGE MEDICATIONS. PER DR DIAMOND STOP INSULIN AND RESUME HOME METFORMIN AND GLIPIZIDE. CANCEL NEBULIZERS AND PUT PT BACK ON HOME MDI.
--- NOTE | 2018-10-24 17:09 | NUR ---
DISCHARGED INSTRUCTIONS REVIEWED WITH PT AND FAMILY MEMBER. IV DC'D INTACT. MEDS FAXED TO [facility]. [facility] DROPPED OFF PORTABLE HOME 02. PT DISCHARGED VIA W/C. PT STOPPED BY SECURITY TO NETWORK SYSTEMS ANALYST PERSONAL BELONGINGS. DC;D AT 1703.
== END 2018-10-24 17:04 | disposition home or self-care (01) | DRG 193 ==
LOC: ER 17:36 → MEDS 10-13 01:36
PROVIDERS: Emergency Medicine; Hospitalist; Internal Medicine; ADMIT Hospitalist
DX: J18.9 Pneumonia, unspecified organism (principal); J96.21 Acute and chronic respiratory failure with hypoxia; I50.32 Chronic diastolic (congestive) heart failure; J45.901 Unspecified asthma with (acute) exacerbation; I13.0 Hypertensive heart and chronic kidney disease with heart failure and stage 1 through stage 4 chronic kidney disease, or unspecified chronic kidney disease; Z68.41 Body mass index [BMI] 40.0-44.9, adult; N40.0 Benign prostatic hyperplasia without lower urinary tract symptoms; E78.5 Hyperlipidemia, unspecified; G47.33 Obstructive sleep apnea (adult) (pediatric); Z99.81 Dependence on supplemental oxygen; M54.9 Dorsalgia, unspecified; Z79.84 Long term (current) use of oral hypoglycemic drugs; E11.22 Type 2 diabetes mellitus with diabetic chronic kidney disease; N18.3 Chronic kidney disease, stage 3 (moderate); E66.01 Morbid (severe) obesity due to excess calories
CPT/HCPCS: 36415; 36416; 36600; 71045; 71046; 80048; 80053; 82803; 82947; 83036; 83605; 83735; 83880; 84145; 84484; 85025; 87040; 87486; 87581; 87633; 87798; 87804; 93005; 93010; 94640; 94660; 94667; 94762; 96361; 96374; 99285-25; J0360; J0456; J0696; J1644; J1650; J1940; J2930; J7030; J7050; J7512

== ENCOUNTER → 2018-10-12 | Outpatient (CLI) | payer MEDICARE ==
[2018-10-12 16:29] LABS: BASOPHILS ABSOLUTE AUTO 0.02 K/mm3 (0.00-0.23); BASOPHILS PERCENT AUTO 0 % (0-2); EOSINOPHILS ABSOLUTE AUTO 0.23 K/mm3 (0.00-0.68); EOSINOPHILS PERCENT AUTO 4 % (0-6); Hemoglobin 11.9 g/dL (13.5-17.5); IMMATURE GRAN ABSOLUTE AUTO 0.02 K/mm3 (0.00-0.10); IMMATURE GRAN PERCENT AUTO 0 % (0-1); LYMPHOCYTES ABSOLUTE AUTO 0.69 K/mm3 (0.84-5.20); LYMPHOCYTES PERCENT AUTO 13 % (21-46); MONOCYTES ABSOLUTE AUTO 0.36 K/mm3 (0.16-1.47); MONOCYTES PERCENT AUTO 7 % (4-13); Mean Corpuscular HGB 27.9 pg (26.0-34.0); Mean Corpuscular HGB Conc 33.1 g/dL (31.5-36.5); Mean Corpuscular Volume 84 fL (80-100); NEUTROPHILS ABSOLUTE AUTO 4.08 K/mm3 (1.96-9.15); NEUTROPHILS PERCENT AUTO 75 % (41-73); RDW Coefficient Variation 14.1 % (11.7-14.2); Red Blood Cell Count 4.27 M/mm3 (4.30-5.90)
[2018-10-12 16:38] LABS: Albumin, Blood 3.8 g/dL (3.4-5.0); Albumin/Globulin Ratio 0.9 (0.8-1.8); Bilirubin, Total 0.7 mg/dL (0.1-1.0); Bun/Creatinine Ratio 15.4 (12.0-20.0); Calcium, Blood 8.8 mg/dL (8.5-10.1); Creatinine, Blood 1.88 mg/dL (0.60-1.20); Globulin, Blood 4.1 g/dL (2.2-4.0); Potassium, Blood 3.4 mmol/L (3.5-5.5); Total Protein, Blood 7.9 g/dL (6.4-8.2)
[2018-10-12 17:06] LABS: Mean Platelet Volume 11.1 fL (9.1-12.4); Platelet Count 131 K/mm3 (150-400)
== END | disposition home or self-care (01) ==
LOC: LAB SHORT 16:22 → LAB EV 16:22
PROVIDERS: Physician Assistant
DX: R09.02 Hypoxemia (principal)
CPT/HCPCS: 80053; 83880; 85025

== ENCOUNTER → 2018-12-30 | Outpatient (CLI) | payer MEDICARE ==
[~2018-12-30] MED LIST changes: +ACET325 PO; +ALBU3IS INH; +ALBU90OI61 INH; +DULERA 200 MCG/13 GM INH; +GUAI600T33 PO; +HUMALOG KW200 UNIT/1 SC; +Lopressor 25 mg25 MG PO; +METO2.5 PO
== END | disposition home or self-care (01) ==
LOC: LAB EV 10:18 → LAB SHORT 10:18
DX: M10.9 Gout, unspecified (principal)
CPT/HCPCS: 84550

== ENCOUNTER 2019-05-15 19:29 | Inpatient (IN) | payer MEDICARE ==
[~2019-05-15] VITALS: Ht 182.9 cm; Wt 106.9 kg
[2019-05-16 01:02] LABS: Source, Urine Clean Catch
[2019-05-16 01:05] LABS: Bilirubin, Urine Neg (Neg); Blood, Urine 2+ (Neg); Glucose Qualitative, Urine Neg (Neg); Ketones, Urine Neg (Neg); Leukocyte Esterase, Urine Neg (Neg); Nitrite, Urine Neg (Neg); Protein, Urine 1+ (Neg); Urobilinogen, Urine NORM (Normal)
[2019-05-16 01:06] LABS: Magnesium, Blood 2.7 mg/dL (1.6-2.4); Phosphorus, Blood 4.6 mg/dL (2.5-4.9)
[2019-05-16 01:07] LABS: Appearance, Urine Clear (Clear); Color, Urine Yellow (P-Yellow)
[2019-05-16 01:15] LABS: Bacteria Rare /hpf; Red Blood Cells, Urine 0-2 /hpf (0-2); Squamous Epithelial Cells Rare /hpf (Few); White Blood Cells, Urine Not Seen /hpf (0-5)
[2019-05-16 01:17] LABS: Creatinine, Urine Random 60.9 mg/dL (27.00-270.00)
--- NOTE | 2019-05-16 07:22 | NUR ---
PATIENT IS A NEW ADMIT FROM THE ED. FOUR PERSON TRANSFER FROM [facility] TO BED. AXO X3 AND TWO PERSON TRANSFER TO [facility]. REPORTED FEET PAIN AND NORCO GIVEN X ONE. HEAD PRESENT ON ADMIT FROM THE ED. NS INFUSING AT 150 mL/HR X TWO BAGS. FIRST BAG STARTED. PATIENT HAD N/V X ONE AND RESOLVED W/O MEDICATION. VSS/AFEBRILE. PATIENT ORIENTED TO ROOM AND CALL LIGHT SYSTEM. PILOT POINT. CALL LIGHT IN REACH. REPORT GIVEN TO ONCOMING RN.
--- NOTE | 2019-05-16 07:39 | NUR ---
ASSUMED CARE OF PT- PT ADMITTED THROUGH THE ED LAST NIGHT. HEAD IN PLACE PATENT AND DRAINING. EMPTIED 1000ML OUT DURUNG BEDSIDE REPORT. PT MEDICATED FOR PAIN AT THE TIME OF REPORT. PT C/O WOUND ON HIS BOTTOM. PT ROLLED AND THERE IS AN INCH LONG SKIN TEAR ON HIS COCCYX. PLACED A MEPILEX TO PREVENT FURTHER BREAKDOWN. PT WEARS GLASES AND HIS LEFT EYE TURNS OUT. PT STATES PRIMARY VISION IN HIS RIGHT EYE. PT HAS PEDAL EDEMA NOTED IN BLE +1 EDEMA. PT HAS HAD LARGE AMOUNTS OF OUTPUT PER REPORT. HEAD WAS PLACED IN THE ED. UNABLE TO DETERMINE PT AMBULATION STATUS AT THIS TIME WILL CTM.
--- NOTE | 2019-05-16 18:18 | NUR ---
SHIFT SUMMARY- PT HAS HAD NO ACUTE CHANGES T/O THE SHIFT. PAIN MEDICATION WAS GIVEN ONCE DURING THE SHIFT. PER PT FAMILY PT HAS BEEN LESS AND LESS AMBULATORY REQUIRING MORE AND MORE ASSISTANCE. PT STATES HE DOES NOT LIKE TO GET UP D/T SEVERE FOOT PAIN. DR PINK IS AWARE OF THE PT INCREASING WEAKNESS, DISCUSSED WITH HIM ON ROUNDING. THE FOOT PAIN WAS MENTIONED LATER IN THE DAY BY THE PT. PT HAS BEEN POSITIONED TODAY FREQUENTLY WITH PILLOWS. THERE WAS A SMALL 1 INCH SPLIT IN THE SKIN ON THE PT COCCYX. PLACED A MEPILEX OVER THE AREA. PT HAS A HEAD THAT IS PATENT AND DRAINING. IVF CURRENTLY RUNNING THE LAST BAG OF FLUIDS, THEN HE WILL BE SL.
--- NOTE | 2019-05-17 04:45 | NUR ---
SHIFT SUMMARY PT HAS SLEPT T/O SHIFT. PT HAS NOT HAD ANY ISSUES OR COMPLAINTS. PT REPOSITIONED NEEDED FOR COMFORT. PT IS CURRENTLY SLEEPING W/ CPAP AND BREATHING EASY. CALL LIGHT IN REACH.
[2019-05-17 05:39] LABS: Bun/Creatinine Ratio 32.1 (12.0-20.0); Calcium, Blood 9.4 mg/dL (8.5-10.1); Creatinine, Blood 2.99 mg/dL (0.60-1.20); Potassium, Blood 3.3 mmol/L (3.5-5.5)
--- NOTE | 2019-05-17 18:42 | NUR ---
SHIFT SUMMARY- PT HAS SLEPT ON AND OFF T/O THE DAY. PAIN SEEMS WELL MANAGED AT THIS TIME ORDER CHANGED TO Q6. PT WAS NOT REQUESTING PAIN MEDICATION WHEN HE NEEDED IT AND TENDS TO NOT SHOW SIGNS OF PAIN UNTIL IT IS OUT OF CONTROL. PT INSTRUCTED TO INFORM STAFF ON ROUNDS IF HIS PAIN IS A 6/10 OR HIGHER, PT HAS REQUESTED PAIN MEDICAION APPROPRIATELY TODAY.
[2019-05-18 04:38] LABS: Hematocrit 32.1 % (37.0-53.0); Mean Corpuscular HGB 26.6 pg (26.0-34.0); Mean Corpuscular HGB Conc 31.2 g/dL (31.5-36.5); Mean Corpuscular Volume 85 fL (80-100); Mean Platelet Volume 10.5 fL (9.1-12.4); Platelet Count 174 K/mm3 (150-400); RDW Coefficient Variation 14.4 % (11.7-14.2); RDW Standard Deviation 44.9 fL (35.1-46.3); Red Blood Cell Count 3.76 M/mm3 (4.30-5.90); White Blood Cell Count 8.87 K/mm3 (4.00-11.30)
--- NOTE | 2019-05-18 04:53 | NUR ---
SHIFT SUMMARY AOX4. VS STABLE. DENIES DYSPNEA. REPORTED NAUSEA & EMESIS @BEGINNING OF SHIFT. MEDICATED 1X W/ZOFRAN PER ORDERS & HASN'T HAD FURTHER NAUSEA. REPORTS 10/10 BURNING PAIN IN BLE/FEET W/TOUCH OR MOVEMENT, MEDICATED 1X W/NORCO PER ORDERS & ELEVATED BLE. ADILENE IS PATENT & DRAINING, WORE CPAP T/O NIGHT. CALL LIGHT IN REACH & I WILL CONT TO MONITOR.
[2019-05-18 05:05] LABS: Bun/Creatinine Ratio 31.3 (12.0-20.0); Calcium, Blood 9.6 mg/dL (8.5-10.1); Creatinine, Blood 2.81 mg/dL (0.60-1.20); Potassium, Blood 3.7 mmol/L (3.5-5.5)
--- NOTE | 2019-05-18 11:59 | NUR ---
PATIENT'S FAMILY AND PATIENT INSIST ON PATIENT GETTING INTO THE SHOWER TO BATHE. I THOROUGHLY EXPLAINED TO THEM HOW DIFFICULT IT WAS, USING THREE STAFF MEMBERS AND A PARMINDER LIFT, JUST TO TRANSFER HIM INTO THE BEDSIDE CHAIR. THE DIL AND SON INSISTED THAT THEY DO IT ALL THE TIME AT HOME, THEY KNOW HOW DIFFICULT HE IS AND THEY WILL BE ABLE TO ACCOMPLISH THE TASK WITHOUT PROBLEMS. I INFORMED THE FAMILY THAT IF THEY COULD SAFELY GET THE PATIENT TO AND FROM THE SHOWER, THEY CAN DO IT. I ALSO REEMPHASIZED THAT WE, STAFF MEMBERS, DO NOT FEEL IT IS SAFE AND WILL NOT BE TRANSFERING HIM. THEY EXPRESSED UNDERSTANDING.
--- NOTE | 2019-05-18 18:17 | NUR ---
SHIFT ASSESSMENT PATIENT IS ALERT AND ORIENTED. A BIT IRRITABLE. STAGE 2 PRESSURE ULCER NOTED TO COCCYX; BARRIER CREAM AND COCCYX MEPILEX APPLIED TO SITE. PATIENT SAT UP IN BED SIDE RECLINER FOR GOOD PORTION OF THE DAY. WHEN PLACED BACK IN BED LAID PATIENT TO RIGHT SIDE TO OFFLOAD FROM COCCYX WOUND. THERE HAVE BEEN NO ACUTE CHANGES TO REPORT ON THIS SHIFT. WILL CONTINUE TO MONITOR AND PROVIDE CARE NEEDED.
[2019-05-19 04:19] LABS: Hematocrit 33.3 % (37.0-53.0); Hemoglobin 10.9 g/dL (13.5-17.5); Mean Corpuscular HGB 27.2 pg (26.0-34.0); Mean Corpuscular HGB Conc 32.7 g/dL (31.5-36.5); Mean Corpuscular Volume 83 fL (80-100); Mean Platelet Volume 10.1 fL (9.1-12.4); Platelet Count 189 K/mm3 (150-400); RDW Coefficient Variation 14.3 % (11.7-14.2); RDW Standard Deviation 43.2 fL (35.1-46.3); Red Blood Cell Count 4.01 M/mm3 (4.30-5.90); White Blood Cell Count 9.89 K/mm3 (4.00-11.30)
[2019-05-19 04:40] LABS: Albumin, Blood 3.1 g/dL (3.4-5.0); Anion Gap 9 mmol/L (6-16); Blood Urea Nitrogen 78 mg/dL (8-24); Bun/Creatinine Ratio 31.1 (12.0-20.0); CO2, Blood 28 mmol/L (21-32); Calcium, Blood 9.9 mg/dL (8.5-10.1); Chloride, Blood 105 mmol/L (98-108); Creatinine, Blood 2.51 mg/dL (0.60-1.20); Glomerular Filtration Rate 27 (60-); Glucose, Blood 134 mg/dL (70-99); Phosphorus, Blood 3.1 mg/dL (2.5-4.9); Potassium, Blood 3.3 mmol/L (3.5-5.5); Sodium, Blood 142 mmol/L (136-145)
--- NOTE | 2019-05-19 06:26 | NUR ---
SHIFT SUMMARY NO ACUTE CHANGES THIS SHIFT. AOX4. VS STABLE. HELD HS LOPRESSOR R/T BP BEING UNDER PARAMETERS. REPORTS PAIN IN BLE YET DENIES NEED FOR PAIN MEDICATION @THIS TIME. DENIES N/V, DYSPNEA. WORE CPAP T/O NIGHT W/CONT PULSE OX >90%. HEAD IS PATENT & DRAINING CLEAR YELLOW URINE. CALL LIGHT IN REACH & I WILL CONT TO MONITOR.
--- NOTE | 2019-05-19 09:54 | NUR ---
HEAD DC'ED THIS RN SPOKE WITH DR. PINK ABOUT NEED FOR HEAD CATHETER. DR. PINK ORDERED TO DC HEAD AT THIS TIME. WILL CONTINUE TO MONITOR VOIDS & RETENTION.
[2019-05-19 15:00] LABS: Percent Saturation 11.1 % (20.0-50.0)
--- NOTE | 2019-05-19 17:12 | NUR ---
SHIFT SUMMARY PT REFUSING TO WORK WITH PHYSICAL THERAPY. PT REFUSING SNF & HOME HEALTH AT THIS TIME. NO ASSESSMENT CHANGES AT THIS TIME. VSS. PT REFUSED TO GET INTO CHAIR THIS SHIFT, BUT DID ALLOW FOR A BEDBATH. WILL CONINTUE TO MONITOR UNTIL TURNOVER IS COMPLETE.
--- NOTE | 2019-05-19 18:12 | NUR ---
Brief Pt visit before dinner arrives. Pt is resting in bed and reports 2/10 pain in BLLE and 5/10 pain in his neck. Assisted MILLING OPERATOR in repositioning Pt in bed. Pt reports no faith belief. He reports having his son and daughter in law living with him. Listened as Pt explained reason for not wanting to go to SNF. Pt reports having his father in law placed in a memory care unit and passing with in a couple of years. Educated Pt on the difference between [facility] care and SNF. Pt reports that he is still unsure if he will accept SNF. Pt reports his appetite has been decreased for 2 weeks. Suggested he tries some of his dinner this evening. Pt is agreeable for continued visits with palliative care. Will discussed plan of care for CT results with hospitalist. Palliative Care will remain available.
--- NOTE | 2019-05-20 06:38 | NUR ---
SHIFT SUMMARY: PATIENT IS A&OX3, VERY ORUTSARARMIUT, VS ARE STABLE, NO COMPLIANTS OF PAIN. PATIENT WAS BLADDER SCANNED TO CHECK FOR RETENTION, 149 ML OBSERVED IN BLADDER. TOTAL URINE OUT FOR SHIFT WAS 475 ML. CPAP ON FOR SLEEP AND BED ALARM IS ON FOR SAFETY.
[2019-05-20 08:12] LABS: BASOPHILS ABSOLUTE AUTO 0.02 K/mm3 (0.00-0.23); BASOPHILS PERCENT AUTO 0 % (0-2); EOSINOPHILS ABSOLUTE AUTO 0.03 K/mm3 (0.00-0.68); EOSINOPHILS PERCENT AUTO 0 % (0-6); Hematocrit 32.5 % (37.0-53.0); Hemoglobin 10.3 g/dL (13.5-17.5); IMMATURE GRAN ABSOLUTE AUTO 0.04 K/mm3 (0.00-0.10); IMMATURE GRAN PERCENT AUTO 0 % (0-1); LYMPHOCYTES ABSOLUTE AUTO 0.93 K/mm3 (0.84-5.20); LYMPHOCYTES PERCENT AUTO 9 % (21-46); MONOCYTES ABSOLUTE AUTO 0.72 K/mm3 (0.16-1.47); MONOCYTES PERCENT AUTO 7 % (4-13); Mean Corpuscular HGB 26.5 pg (26.0-34.0); Mean Corpuscular HGB Conc 31.7 g/dL (31.5-36.5); Mean Corpuscular Volume 84 fL (80-100); NEUTROPHILS ABSOLUTE AUTO 8.98 K/mm3 (1.96-9.15); NEUTROPHILS PERCENT AUTO 84 % (41-73); Platelet Count 208 K/mm3 (150-400); RDW Coefficient Variation 14.7 % (11.7-14.2); RDW Standard Deviation 44.6 fL (35.1-46.3); Red Blood Cell Count 3.88 M/mm3 (4.30-5.90); White Blood Cell Count 10.72 K/mm3 (4.00-11.30)
[2019-05-20 08:53] LABS: Bilirubin, Urine Neg (Neg); Blood, Urine 5+ (Neg); Glucose Qualitative, Urine Neg (Neg); Ketones, Urine Neg (Neg); Leukocyte Esterase, Urine 3+ (Neg); Nitrite, Urine Pos (Neg); Protein, Urine 2+ (Neg); Specific Gravity, Urine 1.015 (1.003-1.022); Urobilinogen, Urine NORM (Normal)
[2019-05-20 08:59] LABS: Appearance, Urine Hazy (Clear); Color, Urine Yellow (P-Yellow)
[2019-05-20 09:01] LABS: White Blood Cells, Urine TNTC /hpf (0-5)
[2019-05-20 09:02] LABS: Anion Gap 9 mmol/L (6-16); Blood Urea Nitrogen 76 mg/dL (8-24); CO2, Blood 27 mmol/L (21-32); Chloride, Blood 106 mmol/L (98-108); Creatinine, Blood 2.45 mg/dL (0.60-1.20); Glomerular Filtration Rate 28 (60-); Glucose, Blood 145 mg/dL (70-99); Magnesium, Blood 2.5 mg/dL (1.6-2.4); Phosphorus, Blood 3.4 mg/dL (2.5-4.9); Potassium, Blood 3.5 mmol/L (3.5-5.5); Sodium, Blood 142 mmol/L (136-145)
[2019-05-20 09:02] LABS: Bacteria Many /hpf; Squamous Epithelial Cells Rare /hpf (Few)
--- NOTE | 2019-05-20 13:20 | NUR ---
Pt visit this afternoon. Pt denies pain at this time. Pt's brother is at bedside during visit. Engaged in discussion regarding CT results and Pt tends to be a litte stoic and states "It is what it is". Difficult to assess Pt's feelings on information given. Pt's brother inquires about further testing. Educated on the possibility of further testing as an outpatient or as in patient depending on length of hospital stay. No other concerns reported at this time. Will plan further visits and discussions with Pt after he has visited with family.
--- NOTE | 2019-05-20 18:40 | NUR ---
SHIFT SUMMARY PATIENT IS ALERT, ORIENTED X3, VERY HARD OF HEARING. HE C/O NEUROPATHY PAIN IN HIS LOWER LEGS/FEET WHEN TOUCHED OR MOVED. HE IS EASILY IRRITATED WITH VARIOUS THINGS. HE DID NOT EAT MUCH THIS SHIFT BUT DRANK ENSURE AND JUNIOR MIST. TRANSFERRED TO CHAIR WITH MAX 1 ASSIST P.THERAPY, BUT TO GET BACK TO BED PATIENT WAS NOT STANDING ON HIS OWN SO STAFF USED SIT TO STAND LIFT TO GET PATIENT BACK SAFELY. SON AND DAUGHTER IN LAW VISITED AND SHE WAS ABLE TO CONVINCE HIM THAT HE NEEDED TO GO TO REHAB AT , SON AND DAUGHTER IN LAW WENT TO VISIT FACILITY. SLAGGER COMMUNICATED WITH FAMILY ABOUT PLAN. BED CHANGED OUT TO ACCOMODATE PATIENT'S HEIGHT BETTER. PATIENT VOIDING WELL THROUGH DAY, UPEP 24 HR COLLECTION STARTED AT END OF SHIFT PER ORDER FROM DR MARTINEZ.
[2019-05-21 05:23] LABS: Albumin, Blood 2.9 g/dL (3.4-5.0); Anion Gap 9 mmol/L (6-16); Blood Urea Nitrogen 77 mg/dL (8-24); Bun/Creatinine Ratio 33.3 (12.0-20.0); CO2, Blood 28 mmol/L (21-32); Calcium, Blood 9.6 mg/dL (8.5-10.1); Chloride, Blood 106 mmol/L (98-108); Creatinine, Blood 2.31 mg/dL (0.60-1.20); Glomerular Filtration Rate 30 (60-); Glucose, Blood 133 mg/dL (70-99); Phosphorus, Blood 2.9 mg/dL (2.5-4.9); Potassium, Blood 3.4 mmol/L (3.5-5.5); Sodium, Blood 143 mmol/L (136-145)
--- NOTE | 2019-05-21 07:33 | NUR ---
pt continue with 24 hr urine collection upep with PT continent of foul smelling edis urine. UA positive C & S pending. Medicated for bilat le pain with helpful effect. PT very weak deconditioned. Uses home CPAP
--- NOTE | 2019-05-21 11:35 | NUR ---
Pt visit this AM. Family at bedside. Pt is expressing frustration regarding going to SNF vs going home. Attempted to assess Pt's goals of care but due to multiple conversations happening this RN was unsuccessful. Pt reports no other concerns at this time. Will attempt to see Pt again when family is not visiting. Spoke with bedside nurse Lizz and discussed case. Palliative Care will remain available.
[2019-05-21 11:39] LABS: Antinuclear Antibody Screen Positive (Negative)
--- NOTE | 2019-05-21 15:30 | NUR ---
PT GIVEN SPONGE BATH THIS MORNING. CREAM APLIED TO COCCYX AREA BECAUSE HE REFUSED TO USE A DRESSING. REPORTING FEET TO BE VERY PAINFUL AND TO WATCH OUT FOR THEM. REPORTED TO MD ABOUT NO BM IN SEVERAL DAYS AND BOWEL CARE ORDERED. PT REFUSED TO TAKE A SUPPOSITORY BUT DID DRINK THE MIRALAX. FAMILY AT BEDSIDE MOST OF DAY. ORDERS MADE TO GO TO [facility] FOR THERAP[facility]. HAS ATTEMPTED TO CALL REPORT PRIOR TO DISCHARGE BUT DIDN'T GET AN ANSWER.
[2019-05-21] MEDS ORDERED: GABA100 PO (15:52)
[2019-05-21] MEDS ORDERED: TAMS.4ER PO (15:55)
[2019-05-21] MEDS ORDERED: Novolin R100 UNIT/M (15:55)
--- NOTE | 2019-05-21 16:30 | NUR ---
[facility] HERE TO PICK PT UP VIA [employer] [facility]. TRANSPORTED AT 1530. ATTEMPTED TO CALL REPORT AGAIN SOON AFTER LEAVING WITH NO REPAIRER RESISTANCE WELDING MACHINES. WAS ABLE TO SPEAK WITH RICKY AT [facility] AT THIS TIME AND GIVE REPORT ON PT.
[2019-05-22 06:08] LABS: COMPLEMENT C3, SERUM 158 mg/dL (82-167); COMPLEMENT C4, SERUM 51 mg/dL (14-44)
[2019-05-22 15:07] LABS: ANTI-DSDNA ANTIBODIES <1 IU/mL (0-9); RNP ANTIBODIES <0.2 AI (0.0-0.9); SJOGREN'S ANTI-SS-A <0.2 AI (0.0-0.9); SJOGREN'S ANTI-SS-B <0.2 AI (0.0-0.9); SMITH ANTIBODIES <0.2 AI (0.0-0.9)
[2019-05-22 16:06] LABS: A/G RATIO 0.8 (0.7-1.7); ALPHA-1-GLOBULIN 0.4 g/dL (0.0-0.4); ALPHA-2-GLOBULIN 1.2 g/dL (0.4-1.0); BETA GLOBULIN 0.8 g/dL (0.7-1.3); GAMMA GLOBULIN 1.7 g/dL (0.4-1.8); GLOBULIN, TOTAL 4.2 g/dL (2.2-3.9); IMMUNOGLOBULIN A, QN, SERUM 155 mg/dL (61-437); IMMUNOGLOBULIN G, QN, SERUM 1741 mg/dL (700-1600); IMMUNOGLOBULIN M, QN, SERUM 86 mg/dL (15-143); M-SPIKE 0.7 g/dL (Not Observed); PROTEIN, TOTAL, SERUM 7.2 g/dL (6.0-8.5)
== END 2019-05-21 15:34 | DRG 683 ==
LOC: ER 19:29 → MEDS 05-16 04:43
PROVIDERS: Emergency Medicine; Internal Medicine; Physician Assistant; ADMIT Internal Medicine
DX: N17.9 Acute kidney failure, unspecified (principal); I31.3 Pericardial effusion (noninflammatory); I13.0 Hypertensive heart and chronic kidney disease with heart failure and stage 1 through stage 4 chronic kidney disease, or unspecified chronic kidney disease; I50.32 Chronic diastolic (congestive) heart failure; N18.3 Chronic kidney disease, stage 3 (moderate); E11.22 Type 2 diabetes mellitus with diabetic chronic kidney disease; M10.9 Gout, unspecified; E66.01 Morbid (severe) obesity due to excess calories; G47.33 Obstructive sleep apnea (adult) (pediatric); Z74.09 Other reduced mobility; R59.0 Localized enlarged lymph nodes; J44.9 Chronic obstructive pulmonary disease, unspecified; E87.6 Hypokalemia; D63.1 Anemia in chronic kidney disease; R30.0 Dysuria; Z79.84 Long term (current) use of oral hypoglycemic drugs; Z79.899 Other long term (current) drug therapy; Z87.891 Personal history of nicotine dependence; Z68.35 Body mass index [BMI] 35.0-35.9, adult
CPT/HCPCS: 36415; 51702; 71045; 74176; 80048; 80069; 81001; 82570; 82728; 82784; 82947; 83036; 83540; 83550; 83735; 83880; 83930; 83935; 83970; 84100; 84165; 84300; 84540; 85025; 85027; 85651; 86038; 86160; 86225; 86235; 86334; 87077; 87086; 87186; 93005; 93010; 93306; 94640; 94762; 96360-59; 97110; 97162; 97166; 97530; 97535; 99285-25; J1644; J2405; J7030; J7040

== ENCOUNTER → 2019-07-11 | Outpatient (CLI) | payer MEDICARE ==
[~2019-07-11] MED LIST changes: +GABA100 PO; +Novolin R100 UNIT/M; +XARELTO1 EACH PO
[2019-07-11 12:59] LABS: International Normalized Ratio 1.54; Prothrombin Time Results 15.7 Sec (9.7-11.5)
[2019-07-12 15:06] LABS: ANTI-DSDNA ANTIBODIES <1 IU/mL (0-9); ANTISCLERODERMA-70 ANTIBODIES <0.2 AI (0.0-0.9); RNP ANTIBODIES <0.2 AI (0.0-0.9); SJOGREN'S ANTI-SS-A <0.2 AI (0.0-0.9); SJOGREN'S ANTI-SS-B <0.2 AI (0.0-0.9); SMITH ANTIBODIES <0.2 AI (0.0-0.9)
[2019-07-14 11:50] LABS: Antinuclear Antibody Screen Positive (Negative)
[2019-07-18 10:55] LABS: ANA Pattern Nucleolar
== END | disposition home or self-care (01) ==
LOC: LAB 12:29 → LAB SHORT 12:29
PROVIDERS: Family Medicine
DX: I13.0 Hypertensive heart and chronic kidney disease with heart failure and stage 1 through stage 4 chronic kidney disease, or unspecified chronic kidney disease (principal); I50.32 Chronic diastolic (congestive) heart failure; E11.22 Type 2 diabetes mellitus with diabetic chronic kidney disease; N18.9 Chronic kidney disease, unspecified; I44.7 Left bundle-branch block, unspecified
CPT/HCPCS: 85610; 85730; 86038; 86039; 86225; 86235; 86762

== ENCOUNTER → 2019-07-15 | Outpatient (CLI) | payer MEDICARE | END | disposition home or self-care (01) | LOC: LAB 16:15 → LAB SHORT 16:15 | DX: M70.22 Olecranon bursitis, left elbow (principal) | CPT/HCPCS: 87070; 87075; 87205 ==

== ENCOUNTER 2019-07-17 14:14 | Day surgery (SDC) | payer MEDICARE ==
[~2019-07-17 14:14] MED LIST changes: -XARELTO1 EACH PO
[2019-07-17] MEDS ORDERED: XARELTO1 EACH PO (19:41)
[2019-07-18 11:52] LABS: Performing Lab SYMBIDOX; Test Name FLOW
== END 2019-07-17 23:19 | disposition home or self-care (01) ==
LOC: US 14:14
PROVIDERS: Internal Medicine Hematology & Oncology
DX: C77.0 Secondary and unspecified malignant neoplasm of lymph nodes of head, face and neck (principal); C80.1 Malignant (primary) neoplasm, unspecified; I10 Essential (primary) hypertension; R60.0 Localized edema; J44.9 Chronic obstructive pulmonary disease, unspecified; E11.42 Type 2 diabetes mellitus with diabetic polyneuropathy; M19.90 Unspecified osteoarthritis, unspecified site; I13.0 Hypertensive heart and chronic kidney disease with heart failure and stage 1 through stage 4 chronic kidney disease, or unspecified chronic kidney disease; E11.22 Type 2 diabetes mellitus with diabetic chronic kidney disease; N18.3 Chronic kidney disease, stage 3 (moderate); I50.32 Chronic diastolic (congestive) heart failure; E78.5 Hyperlipidemia, unspecified; G47.33 Obstructive sleep apnea (adult) (pediatric); N40.0 Benign prostatic hyperplasia without lower urinary tract symptoms; E66.01 Morbid (severe) obesity due to excess calories; Z87.891 Personal history of nicotine dependence; Z79.51 Long term (current) use of inhaled steroids; Z79.4 Long term (current) use of insulin; Z79.01 Long term (current) use of anticoagulants; Z79.899 Other long term (current) drug therapy; Z88.6 Allergy status to analgesic agent; Z51.5 Encounter for palliative care
CPT/HCPCS: 38505; 76942; 88184; 88185; 88305; 88341; 88342; 93971

== ENCOUNTER 2019-07-17 16:30 | Emergency (ER) | payer MEDICARE ==
[~2019-07-17] VITALS: Ht 182.9 cm; Wt 97.5 kg
[2019-07-17 17:48] LABS: BASOPHILS ABSOLUTE AUTO 0.03 K/mm3 (0.00-0.23); BASOPHILS PERCENT AUTO 0 % (0-2); EOSINOPHILS PERCENT AUTO 1 % (0-6); Hematocrit 33.8 % (37.0-53.0); Hemoglobin 10.1 g/dL (13.5-17.5); IMMATURE GRAN ABSOLUTE AUTO 0.03 K/mm3 (0.00-0.10); IMMATURE GRAN PERCENT AUTO 0 % (0-1); LYMPHOCYTES ABSOLUTE AUTO 1.38 K/mm3 (0.84-5.20); LYMPHOCYTES PERCENT AUTO 19 % (21-46); MONOCYTES ABSOLUTE AUTO 0.44 K/mm3 (0.16-1.47); MONOCYTES PERCENT AUTO 6 % (4-13); Mean Corpuscular HGB 27.2 pg (26.0-34.0); Mean Corpuscular HGB Conc 29.9 g/dL (31.5-36.5); Mean Corpuscular Volume 91 fL (80-100); Mean Platelet Volume 10.4 fL (9.1-12.4); NEUTROPHILS ABSOLUTE AUTO 5.22 K/mm3 (1.96-9.15); NEUTROPHILS PERCENT AUTO 73 % (41-73); Platelet Count 175 K/mm3 (150-400); RDW Coefficient Variation 18.5 % (11.7-14.2); RDW Standard Deviation 61.6 fL (35.1-46.3); Red Blood Cell Count 3.71 M/mm3 (4.30-5.90)
[2019-07-17 18:07] LABS: Albumin, Blood 2.6 g/dL (3.4-5.0); Albumin/Globulin Ratio 0.5 (0.8-1.8); Bilirubin, Total 0.6 mg/dL (0.1-1.0); Calcium, Blood 9.1 mg/dL (8.5-10.1); Creatinine, Blood 1.47 mg/dL (0.60-1.20); Globulin, Blood 4.8 g/dL (2.2-4.0); Potassium, Blood 3.2 mmol/L (3.5-5.5); Total Protein, Blood 7.4 g/dL (6.4-8.2)
[2019-07-17] MEDS ORDERED: XARELTO1 EACH PO (19:41)
== END 2019-07-17 20:08 | disposition home or self-care (01) ==
LOC: ER 16:30
PROVIDERS: Physician Assistant
DX: I82.401 Acute embolism and thrombosis of unspecified deep veins of right lower extremity (principal); E11.22 Type 2 diabetes mellitus with diabetic chronic kidney disease; I13.0 Hypertensive heart and chronic kidney disease with heart failure and stage 1 through stage 4 chronic kidney disease, or unspecified chronic kidney disease; N18.9 Chronic kidney disease, unspecified; I50.9 Heart failure, unspecified; Z87.891 Personal history of nicotine dependence
CPT/HCPCS: 36415; 80053; 85025; 93005; 93010; 99283-25